=== PATIENT | female | born 1945 | race Caucasian/White ===

== ENCOUNTER 2018-08-08 14:00 | Emergency (ER) | payer OTHER ==
[~2018-08-08] VITALS: Ht 152.4 cm; Wt 62.7 kg
[2018-08-08] MEDS ORDERED: morphine 4 MG/ML VIAL IV STA (14:01)
[2018-08-08] MEDS ORDERED: ONDANSETRON 4 MG INJ IV STA (14:01)
[2018-08-08 14:27] VITALS: Ht 152.4 cm; Wt 62.7 kg
[2018-08-08] MEDS ORDERED: GLIP10TA14 PO (14:59)
[2018-08-08] MEDS ORDERED: MELO7.5T38 PO (14:59)
[2018-08-08] MEDS ORDERED: PANT40TA4 PO (15:00)
[2018-08-08] MEDS ORDERED: METF100010 PO (15:00)
[2018-08-08] MEDS ORDERED: ATOR20TA38 PO (15:00)
--- NOTE | 2018-08-08 15:33 | ERD ---
ER Documentation Chief Complaint Chief Complaint Bilat arm pain x 30 minutes post slip/fall HPI During the patient's encounter translation services were utilized Language: Taiwanese Source: In person This is a 72-year-old female who presents with mechanical trip and fall. She was at the [facility] just prior to arrival and states that she tripped on something on the ground. She fell forward. Patient now has bilateral shoulder pain that is 8 out of 10 and throbbing with limited range of motion of bilateral shoulders. She denies hitting her head or losing consciousness, no neck pain. No prodrome of headache chest pain or shortness of breath. She also notes a left thumb pain. Patient denies any lower extremity pain chest pain or abdominal pain currently. ROS All systems reviewed and are negative except as per history of present illness. Medications Home Meds Reported Medications Atorvastatin Calcium* (Atorvastatin Calcium*) 20 Mg Tablet, 20 MG PO QHS, #30 TAB 08/08/18 Pantoprazole* (Pantoprazole*) 40 Mg Tablet.dr, 40 MG PO AC BREAKFAST, TAB 08/08/18 Metformin Hcl* (Metformin Hcl*) 1,000 Mg Tablet, 1000 MG PO WITH BREAKFAST DINNE, #60 TAB 08/08/18 Meloxicam* (Meloxicam*) 7.5 Mg Tablet, 7.5 MG PO BID, #30 TAB 08/08/18 Glipizide* (Glipizide*) 10 Mg Tablet, 10 MG PO AC BREAKFAST DINNER, TAB 08/08/18 Allergies Allergies: Coded Allergies: No Known Allergy (Unverified , 08/08/18) PMhx/Soc History of Surgery: Yes (back) Anesthesia Reaction: No Hx Neurological Disorder: No Hx Respiratory Disorders: No Hx Cardiac Disorders: Yes (HTN) Hx Psychiatric Problems: No Hx Miscellaneous Medical Probl: Yes (Arthritis) Hx Alcohol Use: No Hx Substance Use: No Hx Tobacco Use: No Smoking Status: Never smoker FmHx Family History: No diabetes Physical Exam Vitals Vital Signs Date Temp Pulse Resp B/P (MAP) Pulse Ox O2 O2 Flow FiO2 Time Delivery Rate 08/08/18 94 18 168/78 99 Room Air 16:35 (108) 08/08/18 98.0 90 18 162/91 99 14:27 (114) Physical Exam Airway is intact Bilateral breath sounds Strong distal pulses No obvious deficits General: Well developed, well nourished, no acute distress Head: Normocephalic, atraumatic Eyes: Pupils equally reactive, EOM intact ENT: Moist mucous membranes Neck: Supple, no lymphadenopathy, No midline tenderness, deformities, step-offs to the cervical spine, full active and passive range of motion without midline pain. Respiratory: Lungs clear bilaterally, no distress, no chest wall tenderness, no crepitus Cardiovascular: RRR, no murmurs, rubs, or gallops Abdominal: Soft, non-tender, non-distended, no peritoneal signs, pelvis is stable : Deferred MSK: Soft tissue tenderness to the proximal humerus of the right upper extremity with limited range of motion secondary to pain. No tenderness to the elbow wrist or hand. Neurovascular intact distally. The left upper extremity additionally has focal tenderness to the proximal humerus and shoulder with limited range of motion secondary to pain. Patient is a contusion to the base of the left thumb but no snuffbox tenderness. No other bony ab normalities to the wrist or elbow. Neurovascular intact distally. Neurologic: Alert and oriented, moving all extremities, normal speech, no focal weakness, no cerebellar signs Skin: No ecchymoses or bruising to the chest or abdomen Psych: Normal mood Result Diagram: 08/08/18 1429 08/08/18 1429 Results 24 hrs Laboratory Tests Test 08/08/18 14:29 White Blood Count 7.4 10^3/ul Red Blood Count 3.97 10^6/ul Hemoglobin 11.4 g/dl Hematocrit 36.7 % Mean Corpuscular Volume 92.4 fl Mean Corpuscular Hemoglobin 28.7 pg Mean Corpuscular Hemoglobin Concent 31.1 g/dl Red Cell Distribution Width 13.7 % Platelet Count 445 10^3/UL Mean Platelet Volume 9.5 fl Immature Granulocytes % 0.800 % Neutrophils % 82.2 % Lymphocytes % 11.7 % Monocytes % 2.8 % Eosinophils % 2.2 % Basophils % 0.3 % Nucleated Red Blood Cells % 0.0 /100WBC Immature Granulocytes # 0.060 10^3/ul Neutrophils # 6.1 10^3/ul Lymphocytes # 0.9 10^3/ul Monocytes # 0.2 10^3/ul Eosinophils # 0.2 10^3/ul Basophils # 0.0 10^3/ul Nucleated Red Blood Cells # 0.0 10^3/ul Sodium Level 139 mmol/L Potassium Level 4.2 mmol/L Chloride Level 104 mmol/L Carbon Dioxide Level 24 mmol/L Anion Gap 11 Blood Urea Nitrogen 15 mg/dl Creatinine 0.49 mg/dl Est Glomerular Filtrat Rate mL/min > 60 mL/min Glucose Level 228 mg/dl Calcium Level 9.1 mg/dl Current Medications Medications Dose Sig/Tyree Start Time Status Last (Trade) Ordered Route PRN Stop Time Admin Dose Reason Admin Morphine 4 mg ONCE STAT 08/08/18 DC 08/08/18 Sulfate IV 14:01 14:32 (morphine) 08/08/18 14:03 Ondansetron 4 mg ONCE STAT 08/08/18 DC 08/08/18 HCl (Zofran IV 14:01 14:31 Inj) 08/08/18 14:03 Procedures/MDM EKG, MONITORS, & DIAGNOSTIC IMAGING: XR left hand IMPRESSION: 1. Osteoporosis. No evidence for acute fracture. 2. Lesser digit swan-neck deformities. Findings may be the result of chronic inflammatory arthritis if clinically appropriate. 3. Old post-traumatic change of the ulnar styloid. RPTAT: XX XR left shoulder IMPRESSION: 1. Displaced greater tuberosity fracture. Findings are probably acute. Consider CT for further evaluation if clinically indicated. 2. Osteoporosis. RPTAT: XX XR right shoulder IMPRESSION: 1. Suboptimal positioning. It would be difficult to exclude a nondisplaced greater tuberosity fracture. Some similar findings are seen on the left side, consider CT of the shoulders for further evaluation if clinically indicated. 2. Findings suggesting shoulder impingement including greater tuberosity enthesopathy and subacromial spurring. 3. Osteoporosis. CT right shoulder IMPRESSION: 1. Complex comminuted multiplanar fracture of the right proximal humerus, involving the greater and lesser tuberosities of the right proximal humerus. RPTAT: PP PROCEDURES: Splint Application Note: Splint type: Sling Extremity: LUE Indication: Fx The patient was consented at bedside prior to splint application and states understanding of risks, benefits, and alternatives. The patient was neurovascularly intact prior to and status post application of the splint. The patient tolerated the procedure well and there were no complications. Splint Application Note: Splint type: Sling Extremity: RUE Indication: Fx The patient was consented at bedside prior to splint application and states understanding of risks, benefits, and alternatives. The patient was neurovascularly intact prior to and status post application of the splint. The patient tolerated the procedure well and there were no complications. LAB INTERPRETATION: I reviewed the laboratory testing and it shows no evidence of acute process MEDICAL DECISION MAKING: Patient with mechanical trip and fall without signs of syncope. No head trauma. The patient does not meet high-risk criteria and based on NEXUS cervical spine criteria there is no indication for cervical spine imaging at this time. Based on clinical exam I am very concerned for bilateral shoulder proximal h umerus fracture. X-ray imaging of the hand would be appropriate but no evidence of snuffbox injury. If the patient has bilateral upper extremity fractures consideration for hospitalization and rehab facility placement will be appropriate. ER COURSE: * Patient's pain is well controlled * Unfortunately the patient's x-rays and CAT scan show bilateral shoulder fractures. I am concerned that the patient is going to have significant difficulty caring for activities of daily living. She lives with her who is older himself. I had a conversation with them and they agree. The patient is a [employer] member and will be transferred for further orthopedic evaluation and possible usp or rehabilitation placement. CONSULTATION: None DISPOSITION PLAN: Patient will be [facility] me [facility] #[id number] Departure Diagnosis: Primary Impression: Closed fracture of left proximal humerus Encounter type: initial encounter Fracture morphology: other fracture Fracture alignment: nondisplaced Qualified Codes: S42.295A - Other nondisplaced fracture of upper end of left humerus, initial encounter for closed fracture Additional Impression: Closed fracture of right proximal humerus Encounter type: initial encounter Fracture morphology: other fracture Fracture alignment: displaced Qualified Codes: S42.291A - Other displaced fracture of upper end of right humerus, initial encounter for closed fracture Condition: Stable LANDON ORDAZ MD August 08, 2018 15:33
[2018-08-08 20:35] VITALS: BP 168/89; PULSE 88; RESP 16
== END 2018-08-09 06:38 | disposition short-term general hospital (02) ==
LOC: E/R 14:00
DX: S42.295A Other nondisplaced fracture of upper end of left humerus, initial encounter for closed fracture (principal); I10 Essential (primary) hypertension; S42.291A Other displaced fracture of upper end of right humerus, initial encounter for closed fracture; R51 Headache; W01.0XXA Fall on same level from slipping, tripping and stumbling without subsequent striking against object, initial encounter; Y92.9 Unspecified place or not applicable; Z79.84 Long term (current) use of oral hypoglycemic drugs
CPT/HCPCS: 36415; 70450; 73030; 73130; 73200; 80048; 85025; 96374; 96375; 99285; J2270; J2405